=== PATIENT | male | born 1950 | race Caucasian/White ===

== ENCOUNTER 2017-08-04 17:46 | Outpatient (CLI) | payer MEDICARE, OTHER ==
--- NOTE | 2017-08-04 19:17 | RAD ---
RIGHT SHOULDER RADIOGRAPHS THREE VIEWS 08/04/17 PROVIDED CLINICAL HISTORY: Right shoulder pain. FINDINGS: Postoperative changes of rotator cuff repair are demonstrated with presumed partial distal clavicular resection. There is no evidence for fracture or o there acute osseous abnormality. The glenohumeral relationship appears normal. The visualized right lung field appears clear. The subacromial space tanvi ears preserved. IMPRESSION: No evidence for an acute osseous abnormality. POS: [facility]
== END 2017-08-04 17:47 | disposition home or self-care (01) ==
LOC: SCSRAD 17:46
PROVIDERS: ATTEND Family Medicine
DX: M25.511 Pain in right shoulder (principal)

== ENCOUNTER 2017-08-17 14:30 | Outpatient (CLI) | payer MEDICARE, OTHER ==
--- NOTE | 2017-08-17 16:36 | MRI ---
MRI RIGHT SHOULDER WITHOUT CONTRAST: HISTORY: N25.01 (acute pain). COMPARISON: None. FINDINGS: Biceps tendon: No abnormal intraarticular biceps tendon is seen. The biceps tendon is scarred down to the intertubercular groove, extra-articularly. Glenoid labrum: There is loss of alignment of the superior labrum. The superior labrum is torn at th e old biceps tendon insertion. Rotator cuff: A suture anchor is present at the supraspinatus tendon. There is extensive tendinosis of the remaining supraspinatus tendon fibers and infraspinatus tendon fibers. No full-thickness per foration is appreciated. There is articular and bursal surface fraying and interstitial tearing. Soft tissues: Low grade subacromial/subdeltoid bursal effusion. Bones: Prior distal right clavicular resection. IMPRESSION: 1. Either prior tenodesis or complete rupture of the intraarticular tendon with the extraarticular t endon, scarred down to the intertubercular groove. 2. Supraspinatus tendon and suture anchor with intact tendon fibers, which have extensive fraying an d partial tearing. No definite full-thickness perforation. 3. Normal muscle signal and bulk of the rotator cuff. 4. Diminution of the superior labrum with tear at the old biceps-labral insertion. POS: [facility]
== END 2017-08-17 14:31 | disposition home or self-care (01) ==
LOC: SCSMRI 14:30
PROVIDERS: ATTEND Family Medicine
DX: M25.511 Pain in right shoulder (principal); S46.811A Strain of other muscles, fascia and tendons at shoulder and upper arm level, right arm, initial encounter; S43.431A Superior glenoid labrum lesion of right shoulder, initial encounter

== ENCOUNTER 2017-10-12 18:06 | Emergency (ER) | payer MEDICARE, OTHER ==
[2017-10-12] MEDS ORDERED: Ketorolac Tromethamine 30 MG/ML VIAL ONE (18:31)
[2017-10-12 18:46] LABS: #Basophils 0.1 thou/uL (0.0-0.2); #Eosinphils 0.2 thou/uL (0.0-0.7); #Lymphocytes 2.3 thou/uL (1.20-3.40); #Monocytes 0.8 thou/uL (0.11-0.59); #Neutrophils 6.1 thou/uL (1.40-6.50); %Basophils 1.2 % (0.0-1.0); %Eosinophils 1.9 % (0.0-10.0); %Lymphocytes 24.2 % (21.0-51.0); %Monocytes 8.6 % (0.0-10.0); %Neutrophils 64.1 % (42.0-75.0); Hemoglobin 15.5 g/dL (14.0-18.0); Mean Corpuscular HGB CONC 34.1 g/dL (32.0-36.0); Mean Corpuscular Hemoglobin 30.2 pg (27.0-31.0); Mean Corpuscular Volume 88.5 fl (80.0-94.0); Mean Platelet Volume 8.1 fL (7.4-10.4); Platelet Count 240 thou/uL (130-400); RBC Distribution Width 10.8 % (11.5-14.5); Red Blood Cell (RBC) Count 5.13 mill/uL (4.70-6.10); White Blood Cell (WBC) Count 9.5 thou/uL (4.8-10.8)
[2017-10-12 18:59] LABS: Anion Gap 17 mmol/L (10-20); BUN (Urea Nitrogen) 18 mg/dL (8.4-25.7); Calc. Creatinine Clearance 0 mL/min (70-130); Carbon Dioxide 22 mmol/L (23-31); Chloride 103 mmol/L (98-107); Estimated GFR-MDRD 71; Glucose 106 mg/dL (80-115); Potassium 3.9 mmol/L (3.5-5.1); Sodium 138 mmol/L (136-145)
[2017-10-12] MEDS ORDERED: Morphine 10 MG/ML VIAL ONE (19:04)
[2017-10-12 19:44] LABS: Bilirubin Negative (Negative); Blood, Urine Moderate (Negative); Clarity Slightly Cloudy (Clear); Glucose, Urine (Dipstick) Negative (Negative); Leukocyte Negative (Negative); Nitrite Negative (Negative); Protein, Urine (Dipstick) Negative (Neg-Trace); Urobilinogen 0.2 mg/dL (0.2-1.0); pH, Urine 5.5 (5.0-9.0)
[2017-10-12 19:52] LABS: Crystals/HPF 1+ CA OXALATE HPF (Negative); Squamous Epithelial 0-3 HPF (0-3); WBC/HPF 0-3 HPF (0-3)
--- NOTE | 2017-10-12 20:46 | CT ---
CT ABDOMEN AND PELVIS NONCONTRAST 10/12/17 HISTORY: Left flank pain. FINDINGS: There is mild distention of the left renal collecting system and ureter to the level of an oval calci fication within the mid left ureter at the L5 level. The calcification is 8 mm in length x [address] Calcifications within calyces of the left kidney are 2 mm in diameter. The right renal collecting system, ureter, and urinary bladder are decompressed without stone evident . Lack of contrast limits evaluation for other abnormalities. Small hiatal hernia is apparent. Degenera tive changes involve the lumbar spine. Small dystrophic calcification is present just anterior to the urinary bladder and is of uncertain significance. Scattered diverticula arise from the colon without adjacent inflammation. IMPRESSION: 1. Partial obstruction at an 8 mm mid left ureteral calculus. 2. Additional smaller nonobstructing left renal calculi. POS: [facility]
== END 2017-10-12 20:28 | disposition home or self-care (01) ==
LOC: SCSER 18:06
DX: N20.1 Calculus of ureter (principal); E78.5 Hyperlipidemia, unspecified; Z79.899 Other long term (current) drug therapy
CPT/HCPCS: 74176; 80048; 81003; 81015; 85025; J1885; J2270

== ENCOUNTER 2017-10-14 09:24 | Outpatient (CLI) | payer MEDICARE ==
[2017-10-14 10:42] LABS: PTT 27.2 SEC (22.9-36.1); Prothrombin Time 13.4 SEC (12.0-14.7)
--- NOTE | 2017-10-15 08:08 | EKG ---
Test Reason : Blood Pressure : / mmHG Vent. Rate : 051 BPM Atrial Rate : 051 BPM P-R Int : 146 ms QRS Dur : 076 ms QT Int : 432 ms P-R-T Axes : 024 045 010 degrees QTc Int : 398 ms Sinus bradycardia low voltage Anterior infarct , age undetermined Abnormal ECG When compared with ECG of 29-MAY-2014 13:10, Borderline criteria for Inferior infarct are now Present Confirmed by DR. Edu LUCERO (3) on 10/15/2017 8:08:20 AM Referred By: ISHA Confirmed By:DR. Edu LUCERO
== END 2017-10-14 09:25 | disposition home or self-care (01) ==
LOC: LABBT 09:24
PROVIDERS: ATTEND Urology
DX: Z01.818 Encounter for other preprocedural examination (principal); N20.1 Calculus of ureter
CPT/HCPCS: 85610; 85730; 93005; 93010

== ENCOUNTER 2017-10-19 05:55 | Day surgery (SDC) | payer MEDICARE ==
[2017-10-14 09:47] VITALS: BMI 33.1
[2017-10-19] MEDS ORDERED: Fentanyl 250 MCG/5 ML VIAL ONE (06:39)
[2017-10-19] MEDS ORDERED: Levofloxacin 500 mg/D5W 100 ml Premix Bag ONE (06:43)
[2017-10-19] MEDS ORDERED: Iothalamate Meglumine 60% 50 ML VIAL FS ONE (07:17)
--- NOTE | 2017-10-19 09:04 | RAD ---
KUB: History: Pre op renal calculus. Comparison: CT examination of 10-12-17. FINDINGS: The bowel gas pattern is nonobstructed. There appears to be a faint calculus overlying the lower pole of the left kidney. There is also a calcification in the left side of the pelvis potentially within the distal left ureter. I suspect that this is the calculus which was seen closer to the pelvic rim o n the previous exam. IMPRESSION: Tiny faint lower pole left renal calculus and a probable calculus located near the left ureterovesica l junction. POS: [facility]
--- NOTE | 2017-10-19 09:06 | RAD ---
RETROGRADE PYELOGRAM TWO VIEWS: FINDINGS: This shows contrast injected within the left ureter with filling defect in the distal left ureter cor responding to the calculus noted on the previous KUB. The second film shows placement of the left ure teral stent. IMPRESSION: Left ureteral stent placement with distal left ureteral calculus. POS: [facility]
[2017-10-19] MEDS ORDERED: Phenazopyridine HCl 97.5 MG TABLET ONE (09:09)
--- NOTE | 2017-10-19 10:19 | OP ---
PREOPERATIVE DIAGNOSES: 1. A 67-year-old male with history of kidney stones, left mid ureteral calculi , measuring 5 x 8 mm, Hounsfield unit 640 with hydronephrosis. 2. Left lower pole punctate renal lithiasis. POSTOPERATIVE DIAGNOSES: 1. A 67-year-old male with history of kidney stones, left mid ureteral calculi , measuring 5 x 8 mm, Hounsfield unit 640 with hydronephrosis. 2. Left lower pole punctate renal lithiasis. PROCEDURE: Cystoscopy, left retrograde, balloon dilation of left intramural ureter, a rigid ureteroscopy, laser lithotripsy, basket extraction of stone fragments, 6 x 24 double-J ureteral stent placement with dangler taped to penis. SURGEON: Dr. Ferris. ANESTHESIA: General. COMPLICATIONS: None apparent. DISPOSITION: To the recovery room in stable condition, extubated. INDICATIONS FOR THE PROCEDURE AND HISTORY: Mr. Bryan is a 67-year-old male, who presented to the emergency room due to history of left flank pain. His pain was rated 9/10 on the pain scale. I subsequently saw the patient, he was adequately controlled with pain medication, and desired trial of medical expulsion therapy; however, was opened to elective ureteroscopy if unable to pass in a timely manner. He presents today for stone treatment due to failed medical expulsion therapy. Risks and complications of the procedure was discussed with him in detail including, but not limited to, bleeding, pain, infection, injury to adjacent organs, urosepsis, stricture formation, possible secondary procedure was reviewed. All questions were answered to his satisfaction and desired to proceed. DESCRIPTION OF THE PROCEDURE: After an informed consent was signed, the patient was taken to the operating room, placed in a supine position. Broad- spectrum antibiotics, bilateral TJ hose, SCDs were placed. The patient then was intubated by Anesthesia. Per Anesthesia, upon intubation, he did have some gastric secretions. Dr. Rivera was available at bedside, he subsequently underwent endotracheal anesthesia. The patient was then formally prepped and draped and placed in dorsal lithotomy position. A 21-[place]ank[place] cystoscope was utilized, which demonstrated nonobstructing wide caliber bulbar stricture, now warranting treatment, as the scope was easily able to be passed. He did have mild BPH component with a high median bar component. The superior verumontanum length was approximately 3 cm. Upon entering the bladder, there was no evidence of diverticulum, bladder stones appreciated. The ureteral orifices identified in normal orthotopic position. A 0.35 sensor wire was then placed and an open-ended catheter was passed into the distal ureter and a retrograde pyelogram was performed opacifying a filling defect consistent with the stone in the left distal ureter, just proximal to the intramural portion of the ureter. There was proximal hydronephrosis consistent with obstructing stone. Wire was able to be passed into the left upper pole; however, required some manipulation due to an obstructing stone. At this time, a [employer] 4 cm 12 [place] balloon dilator was utilized to dilate the intramural ureter. This was performed uneventfully. Subsequently, we passed the rigid ureteroscope with the wire in situ and we were easily able to visualize the stone, which appeared to be large and oblong. Using 200 micron laser fiber at 1.2 joules, we laser lithotripsied the stone into multiple fragments. A 0 tip nitinol basket was utilized to extract all stone fragments. At the end of the procedure, there was endoscopic clearance. No evidence of ureteral mucosal trauma was appreciated. A 6 x 24 double-J ureteral stent was passed, with appropriate redundancy in the bladder and the renal pelvis. Since there was endoscopic clearance, I did leave his ureteral stent on dangler taped to his pubic symphysis after the bladder was completely emptied. He tolerated the procedure well. He is discharged with [place] prescription refill 10/325, #50, Levaquin x7 days, Azo p.r.n., Flomax #30 one p.o. daily, Colace 100 mg 1 p.o. b.i.d. As he did have some gastric secretions with intubation, he is provided Levaquin for pulmonary coverage as well. The patient will be informed regarding Levaquin coverage. If he develops fever, chest x-ray would be advised. SYLVAIN
[2017-10-19] MEDS ORDERED: Ondansetron HCl/PF 4 MG/2 ML Vial ONE (13:54)
[2017-10-19] MEDS ORDERED: Dexamethasone 20 MG/5 ML VIAL ONE (13:54)
[2017-10-19] MEDS ORDERED: PROPOFOL 200 MG/20 ML VIAL ONE (13:54)
[2017-10-19] MEDS ORDERED: Lidocaine 1% PF 5 ML VIAL ONE (13:54)
[2017-10-19] MEDS ORDERED: Glycopyrrolate 0.2 MG/ML 5 ML SYRINGE ONE (13:54)
[2017-10-25 10:23] LABS: CA Oxalate Dihydrate 15 % (.); CA Oxalate Monohydrate 83 % (.); Color Brown (.); Stone Weight 18.2 mg (.)
== END 2017-10-19 13:43 | disposition home or self-care (01) ==
LOC: SDC 05:55
PROVIDERS: ATTEND Urology
PROC: 0T778DZ Dilation of Left Ureter with Intraluminal Device, Via Natural or Artificial Opening Endoscopic (ICD-10-PCS; principal; 2017-10-19)
PROC: 0TC78ZZ Extirpation of Matter from Left Ureter, Via Natural or Artificial Opening Endoscopic (ICD-10-PCS; 2017-10-19)
PROC: 0T778DZ Dilation of Left Ureter with Intraluminal Device, Via Natural or Artificial Opening Endoscopic (ICD-10-PCS; 2017-10-19)
DX: N13.2 Hydronephrosis with renal and ureteral calculous obstruction (principal); E78.5 Hyperlipidemia, unspecified; K21.9 Gastro-esophageal reflux disease without esophagitis; G47.30 Sleep apnea, unspecified; I10 Essential (primary) hypertension; E78.2 Mixed hyperlipidemia; M19.90 Unspecified osteoarthritis, unspecified site; Z87.442 Personal history of urinary calculi; Z79.899 Other long term (current) drug therapy; Z99.89 Dependence on other enabling machines and devices
CPT/HCPCS: 74018; 74420; 82365; 88300; C1758; C1769; J1100; J1956; J2001; J2405; J2704; J3010; Q9961

== ENCOUNTER 2018-02-03 10:09 | Outpatient (CLI) | payer MEDICARE ==
[2018-02-03 11:03] LABS: Bilirubin Negative (Negative); Blood, Urine Negative (Negative); Clarity Clear (Clear); Glucose, Urine (Dipstick) Negative (Negative); Leukocyte Negative (Negative); Nitrite Negative (Negative); Protein, Urine (Dipstick) Negative (Neg-Trace); Specific Gravity, Urine 1.015 (1.005-1.030); Urobilinogen 0.2 mg/dL (0.2-1.0)
[2018-02-03 11:29] LABS: Anion Gap 12 mmol/L (10-20); BUN (Urea Nitrogen) 16 mg/dL (8.4-25.7); Calc. Creatinine Clearance 0 mL/min (70-130); Calcium 9.2 mg/dL (7.8-10.44); Carbon Dioxide 26 mmol/L (23-31); Chloride 105 mmol/L (98-107); Estimated GFR-MDRD 76; Glucose 140 mg/dL (80-115); Potassium 4.2 mmol/L (3.5-5.1); Sodium 139 mmol/L (136-145); Uric Acid 5.9 mg/dL (3.5-7.2)
--- NOTE | 2018-02-03 11:45 | RAD ---
KUB: COMPARISON: 10/19/17. HISTORY: Kidneys stones. FINDINGS: A single view of the abdomen shows a nonspecific, nonobstructed bowel gas pattern. No obvious calcif ications project over either renal shadow. The previously seen calcification in the left aspect of t he pelvis is no longer present. Multiple phleboliths are seen in the pelvis. IMPRESSION: No urinary collecting system calculi identified. POS: [facility]
[2018-02-03 12:04] LABS: Bacteria/HPF None Seen HPF (None Seen); RBC/HPF None Seen HPF (0-3); Squamous Epithelial None Seen HPF (0-3); WBC/HPF None Seen HPF (0-3)
--- NOTE | 2018-02-03 12:05 | ULT ---
RENAL ULTRASOUND: Indication: Left flank pain. History: Urolithiasis. Comparison: 10-02-17 FINDINGS: There is no hydronephrosis. There are bilateral ureteral jets at the level of the bladder. The blad sara is normal appearing. The left kidney measures 4.9 x 10.7 x 5.6 cm. The right kidney measures 5.2 x 10.3 x 4.9 cm. IMPRESSION: No hydronephrosis demonstrated. Bilateral ureteral jets seen at the level of the bladder. POS: [facility]
== END 2018-02-03 10:10 | disposition home or self-care (01) ==
LOC: SCSULT 10:09
PROVIDERS: ATTEND Urology
DX: N20.0 Calculus of kidney (principal); Z87.442 Personal history of urinary calculi
CPT/HCPCS: 36415; 74018; 76770; 80048; 81001; 83970; 84550; 87086

== ENCOUNTER 2019-05-28 08:45 | Outpatient (CLI) | payer MEDICARE | END 2019-05-28 08:46 | disposition home or self-care (01) | LOC: CTENTCT 08:45 | PROVIDERS: ATTEND Otolaryngology Plastic Surgery within the Head & Neck | DX: J32.9 Chronic sinusitis, unspecified (principal) | CPT/HCPCS: 70486 ==

== ENCOUNTER 2019-06-11 09:23 | Outpatient (CLI) | payer MEDICARE ==
--- NOTE | 2019-06-11 09:53 | RAD ---
Exam: 1 view abdomen COMPARISON: 02/03/2018 HISTORY: Renal calculi. FINDINGS: Nonspecific bowel gas pattern. No suspicious densities in the abdomen or pelvis. Left and r ight hemipelvic phleboliths are noted. Bowel gas pattern is nonspecific No acute osseous abnormalities IMPRESSION: No radiographic evidence of nephrolithiasis or ureterolithiasis
== END 2019-06-11 09:24 | disposition home or self-care (01) ==
LOC: BICRAD 09:23
PROVIDERS: ATTEND Urology
DX: N20.0 Calculus of kidney (principal); Z87.442 Personal history of urinary calculi
CPT/HCPCS: 74018

== ENCOUNTER 2019-06-20 10:14 | Day surgery (SDC) | payer MEDICARE ==
[2019-06-19 10:05] VITALS: BMI 31.9
[~2019-06-20 10:14] MED LIST: Dexamethasone 20 MG/5 ML VIAL ONE; Lidocaine 1% PF 5 ML VIAL ONE; Ondansetron PF 4 MG/2 ML Vial ONE; PROPOFOL 200 MG/20 ML VIAL ONE; Succinylcholine Chloride 20 MG/ML 10 ml SYRINGE FS ONE
[2019-06-20] MEDS ORDERED: Oxymetazoline HCl 0.05% ( 15 ML ) ONE ×2 (10:36→12:04)
[2019-06-20 11:12] LABS: Hemoglobin 15.7 g/dL (14.0-18.0)
[2019-06-20 11:42] LABS: Anion Gap 13 mmol/L (10-20); BUN (Urea Nitrogen) 16 mg/dL (8.4-25.7); Calc. Creatinine Clearance 106 mL/min (70-130); Carbon Dioxide 22 mmol/L (23-31); Chloride 106 mmol/L (98-107); Estimated GFR-MDRD 84; Glucose 102 mg/dL (80-115); Potassium 4.3 mmol/L (3.5-5.1); Sodium 137 mmol/L (136-145)
[2019-06-20] MEDS ORDERED: Lidocaine 1% w/Epinephrine 1:100K 20 ML VIAL ONE (12:04)
[2019-06-20] MEDS ORDERED: Bacitracin Zinc Ointment 30 gm TUBE ONE (12:04)
[2019-06-20] MEDS ORDERED: Fentanyl 100 MCG/2 ML VIAL ONE ×2 (12:05→13:24)
[2019-06-20] MEDS ORDERED: hydrALAZINE 20 MG/ML VIAL ONE (13:11)
[2019-06-20] MEDS ORDERED: Glycopyrrolate 0.2 MG/ML 5 ML SYRINGE ONE (13:29)
--- NOTE | 2019-06-21 07:09 | EKG ---
Test Reason : PREOP Blood Pressure : / mmHG Vent. Rate : 054 BPM Atrial Rate : 054 BPM P-R Int : 156 ms QRS Dur : 086 ms QT Int : 420 ms P-R-T Axes : 011 -27 024 degrees QTc Int : 398 ms Sinus bradycardia Cannot rule out Inferior infarct (cited on or before 14-OCT-2017) Possible Anterior infarct (cited on or before 14-OCT-2017) Abnormal ECG When compared with ECG of 14-OCT-2017 10:17, QRS axis Shifted left Questionable change in initial forces of Inferior leads Confirmed by DR. Edu LUCERO (3) on 06/21/2019 7:09:38 AM Referred By: MIAH Confirmed By:DR. Edu LUCERO
--- NOTE | 2019-06-21 07:35 | OP ---
DATE OF PROCEDURE: 06/20/2019 PREOPERATIVE DIAGNOSES: 1. Chronic rhinosinusitis. 2. Bilateral nasal polyposis. 3. Allergic fungal sinusitis. 4. Bilateral inferior turbinate hypertrophy. POSTOPERATIVE DIAGNOSES: 1. Chronic rhinosinusitis. 2. Bilateral nasal polyposis. 3. Allergic fungal sinusitis. 4. Bilateral inferior turbinate hypertrophy. PROCEDURES PERFORMED: 1. Bilateral endoscopic sinus surgery, total ethmoidectomy with removal of tissue. 2. Bilateral endoscopic sinus surgery, maxillary antrostomy with removal of tissue. 3. Bilateral endoscopic sinus surgery, frontal sinusotomies with removal of tissue. 4. Bilateral endoscopic sinus surgery, sphenoidotomies with removal of tissue. 5. Bilateral inferior turbinate submucosal resection. 6. [employer] cranial-based image-guided sinus surgery. ESTIMATED BLOOD LOSS: 50 mL. COMPLICATIONS: None. ANESTHESIA: GETA. DESCRIPTION OF PROCEDURE: The patient was taken to the operating room and placed supine on the table. General endotracheal anesthesia was obtained by the Anesthesia Staff. Tube was secured in the left lower lip and the patient were prepped and draped for standard nasal procedures. Following this, the [employer] image-guided system was then set up and calibrated and was noted to be within 1 mm of accuracy. Following this, using the image-guided 0-degree microdebrider blade, the 0-degree endoscope was advanced into the nasal cavity. Large nasal polyps were found throughout the nasal cavity and obstructing the entire middle meatus bilaterally. These were injected with 1% lidocaine with 1:100,000 epinephrine into the middle turbinates, inferior turbinates, and nasal polyps. Following this, using the [employer] system, the polyps were removed from the middle meatus. A Jackson elevator was used to medialize the middle turbinates. The previous maxillary antrostomies had polypoid tissue and fungal debris obstructing the ostia and this was removed using the curved microdebrider and straight Blakesley forceps bilaterally. Therefore, we opened and widened the maxillary sinus ostia. Following this, the 0-degree scope was then used to work through the posterior ethmoidal cells and identify the base of skull working from posterior to anterior using the image-guided system. The remnant ethmoidal cells were opened and nasal polyps and fungal debris was removed. Using the Avilez tip suction under the image-guided system, the anterior face of the sphenoid sinus was then identified. Using the Avilez tip suction, a sphenoidotomy was created bilaterally. Thick mucoid effusion, nasal polyps, and fungal debris were suctioned and removed. The sphenoid ostia were widened medially and inferiorly. The bone of the anterior wall of the sphenoid sinus was very spongy and thickened from chronic infection. Following this, the 45-degree endoscope and the 40-degree image-guided microdebrider blade was used to further open the frontal sinus ostia bilaterally. Nasal polyps were removed from the frontal sinus bilaterally. Following this, the inferior turbinates were punctured on the anterior and inferior aspect with the submucosal microdebrider and submucosal resection was performed bilaterally of the anterior and inferior portions of the inferior turbinates. Following this, the nasal cavity was irrigated. Telfa pads were placed within the ethmoidal sinuses bilaterally and the frontal sinus ostia bilaterally. NasoPore packing was placed within the middle meatus. The patient tolerated the procedure well. Job ID: [id number]
== END 2019-06-20 15:28 | disposition home or self-care (01) ==
LOC: SDC 10:14
PROVIDERS: ATTEND Otolaryngology Plastic Surgery within the Head & Neck
PROC: 09TL0ZZ Resection of Nasal Turbinate, Open Approach (ICD-10-PCS; principal; 2019-06-20)
PROC: 8E09XBZ Computer Assisted Procedure of Head and Neck Region (ICD-10-PCS; 2019-06-20)
PROC: 09TV8ZZ Resection of Left Ethmoid Sinus, Via Natural or Artificial Opening Endoscopic (ICD-10-PCS; 2019-06-20)
PROC: 09TU8ZZ Resection of Right Ethmoid Sinus, Via Natural or Artificial Opening Endoscopic (ICD-10-PCS; 2019-06-20)
PROC: 09BT8ZZ Excision of Left Frontal Sinus, Via Natural or Artificial Opening Endoscopic (ICD-10-PCS; 2019-06-20)
PROC: 09BW8ZZ Excision of Right Sphenoid Sinus, Via Natural or Artificial Opening Endoscopic (ICD-10-PCS; 2019-06-20)
PROC: 09BX8ZZ Excision of Left Sphenoid Sinus, Via Natural or Artificial Opening Endoscopic (ICD-10-PCS; 2019-06-20)
PROC: 09BQ8ZZ Excision of Right Maxillary Sinus, Via Natural or Artificial Opening Endoscopic (ICD-10-PCS; 2019-06-20)
PROC: 09BR8ZZ Excision of Left Maxillary Sinus, Via Natural or Artificial Opening Endoscopic (ICD-10-PCS; 2019-06-20)
PROC: 09BS8ZZ Excision of Right Frontal Sinus, Via Natural or Artificial Opening Endoscopic (ICD-10-PCS; 2019-06-20)
DX: J32.9 Chronic sinusitis, unspecified (principal); J33.9 Nasal polyp, unspecified; J30.89 Other allergic rhinitis; J34.3 Hypertrophy of nasal turbinates; J34.89 Other specified disorders of nose and nasal sinuses; K21.9 Gastro-esophageal reflux disease without esophagitis; G47.30 Sleep apnea, unspecified; M19.90 Unspecified osteoarthritis, unspecified site; E78.5 Hyperlipidemia, unspecified; I10 Essential (primary) hypertension; Z79.899 Other long term (current) drug therapy
CPT/HCPCS: 80048; 85014; 85018; 93005; 93010; J0360; J1100; J2001; J2405; J2704; J3010

== ENCOUNTER 2019-06-28 06:56 | Outpatient (CLI) | payer MEDICARE ==
--- NOTE | 2019-06-28 07:58 | RAD ---
KUB INDICATION: Nephrolithiasis COMPARISON: None FINDINGS: Bowel gas: Nonspecific but without overt appearance of obstruction. Lung bases: Clear. Additional findings: The small 2 mm calculus involving the region of the lower pole of the left kidne y is stable. No suspicious calcification is seen along the expected course of the renal collecting systems. Multiple small phleboliths are seen within the lower pelvis. Osseous structures: Mild levoscoliosis. There is scattered degenerative and osteoarthritic change pre sent. No acute fracture or subluxation demonstrated. IMPRESSION: 1. Stable left nephrolithiasis
--- NOTE | 2019-06-28 09:35 | ULT ---
RENAL ULTRASOUND: HISTORY: Renal calculi. Followup of removal of kidney stone. FINDINGS: Real-time imaging of the right and left kidneys was performed. The right kidney measured 10.3 and th e left kidney also 10.3 cm in size. No cyst, mass, or obstruction. No definite renal calculi are se en. Bladder region appears unremarkable. Bilateral ureteral jets are identified. IMPRESSION: Unremarkable renal ultrasound. POS: [facility]
== END 2019-06-28 06:57 | disposition home or self-care (01) ==
LOC: SCSULT 06:56
PROVIDERS: ATTEND Urology
DX: N20.0 Calculus of kidney (principal); Z87.442 Personal history of urinary calculi
CPT/HCPCS: 74018; 76770

== ENCOUNTER 2020-10-15 09:42 | Outpatient (CLI) | payer MEDICARE ==
--- NOTE | 2020-10-15 11:23 | RAD ---
KUB: HISTORY: Renal calculus. COMPARISON: 06/28/2019 study. FINDINGS: There is a tiny punctate calcification overlying the lower pole of the right kidney, potentially a sm all right renal calculus. I do not see a definite left renal calculus. Calcifications in the pelvis appear to represent phleboliths. IMPRESSION: Possible lower pole right renal calculus. POS: [facility]
== END 2020-10-15 09:43 | disposition home or self-care (01) ==
LOC: BICRAD 09:42
PROVIDERS: ATTEND Urology
DX: N20.0 Calculus of kidney (principal); Z87.442 Personal history of urinary calculi; Z80.42 Family history of malignant neoplasm of prostate; N35.919 Unspecified urethral stricture, male, unspecified site; Z12.5 Encounter for screening for malignant neoplasm of prostate; N40.1 Benign prostatic hyperplasia with lower urinary tract symptoms
CPT/HCPCS: 74018; 80048; 81001; G0103; 36415

== ENCOUNTER 2021-10-15 12:41 | Outpatient (CLI) | payer MEDICARE | END 2021-10-15 12:42 | disposition home or self-care (01) | LOC: SCSRAD 12:41 | PROVIDERS: ATTEND Urology | DX: N20.0 Calculus of kidney (principal) | CPT/HCPCS: 36415; 74018; 80053; 80061; 81001; G0103 ==

== ENCOUNTER 2022-04-13 12:10 | Outpatient (CLI) | payer MEDICARE | END 2022-04-13 12:11 | disposition home or self-care (01) | LOC: RAD 12:10 | PROVIDERS: ATTEND Urology | DX: N20.0 Calculus of kidney (principal) | CPT/HCPCS: 74018; 80048; 81001; 83970; 84550; G0103; 36415; 80053; 80061 ==

== ENCOUNTER 2023-08-26 14:31 | Outpatient (CLI) | payer MEDICARE | END 2023-08-26 14:32 | disposition home or self-care (01) | LOC: SCSMRI 14:31 | PROVIDERS: ATTEND Nurse Practitioner Family | DX: M47.26 Other spondylosis with radiculopathy, lumbar region (principal); M48.04 Spinal stenosis, thoracic region | CPT/HCPCS: 72148 ==

== ENCOUNTER 2024-03-13 09:47 | Outpatient (CLI) | payer MEDICARE | END 2024-03-13 09:48 | disposition home or self-care (01) | LOC: BICRAD 09:47 | PROVIDERS: ATTEND Urology | DX: N20.0 Calculus of kidney (principal) | CPT/HCPCS: 74018 ==